=== PATIENT | female | born 1995 | race Caucasian/White ===

== ENCOUNTER 2019-01-03 09:54 | Emergency (ER) | payer OTHER ==
[~2019-01-03] VITALS: Ht 162.6 cm; Wt 81.7 kg
[~2019-01-03 09:54] MED LIST: ADALAT CC PO; ALBU8HFA2 INH; AMOX500 PO; AZIT250 PO; BC PILLS; IBUP800 PO; LABE200 PO; LISI5 PO; METO100; PHENA100 PO; PHENA200 PO; SULTRIDS PO; Verotin-Gr Cap1 EACH PO
[2019-01-03] MEDS ORDERED: HYDHCL25 (10:19)
[2019-01-03] MEDS ORDERED: BUPR100 PO (10:19)
[2019-01-03] MEDS ORDERED: LOSARTAN POTAS100 MG PO (10:19)
[2019-01-03 10:26] LABS: Source, Urine Clean Catch
[2019-01-03 10:29] LABS: Bilirubin, Urine Neg (Neg); Blood, Urine 5+ (Neg); Glucose Qualitative, Urine Neg (Neg); Ketones, Urine 1+ (Neg); Leukocyte Esterase, Urine 3+ (Neg); Nitrite, Urine Neg (Neg); Protein, Urine 3+ (Neg); Specific Gravity, Urine 1.015 (1.003-1.022); Urobilinogen, Urine NORM (Normal)
[2019-01-03 10:38] LABS: Appearance, Urine Bloody (Clear); Color, Urine Red (P-Yellow)
[2019-01-03 10:41] LABS: Bacteria Rare /hpf; Red Blood Cells, Urine TNTC /hpf (0-2); Squamous Epithelial Cells Rare /hpf (Few); White Blood Cells, Urine TNTC /hpf (0-5)
[2019-01-03] MEDS ORDERED: Macrobid 100 M100 MG PO (10:48)
[2019-01-03] MEDS ORDERED: Pyridium200 MG PO (10:48)
== END 2019-01-03 10:55 | disposition home or self-care (01) ==
LOC: ER 09:54
PROVIDERS: Physician Assistant
DX: N39.0 Urinary tract infection, site not specified (principal); Z88.5 Allergy status to narcotic agent; Z79.899 Other long term (current) drug therapy; I10 Essential (primary) hypertension; F41.9 Anxiety disorder, unspecified
CPT/HCPCS: 81001; 81025; 87077; 87086; 87186; 99283

== ENCOUNTER → 2022-12-24 | Outpatient (CLI) | payer OTHER ==
[~2022-12-24] MED LIST changes: +BUPR100 PO; +HYDHCL25; +LOSARTAN POTAS100 MG PO; +Macrobid 100 M100 MG PO; +Pyridium200 MG PO
== END ==
LOC: LAB SHORT 07:00 → LAB 07:00 → LAB FUT 09-19 15:55
DX: I10 Essential (primary) hypertension (principal)
CPT/HCPCS: 81050

== ENCOUNTER → 2023-04-25 | Outpatient (CLI) | payer OTHER ==
[2023-04-25 09:53] LABS: BASOPHILS ABSOLUTE AUTO 0.04 K/mm3 (0.00-0.23); BASOPHILS PERCENT AUTO 1 % (0-2); EOSINOPHILS ABSOLUTE AUTO 0.16 K/mm3 (0.00-0.68); EOSINOPHILS PERCENT AUTO 2 % (0-6); Hematocrit 40.1 % (33.0-51.0); Hemoglobin 13.6 g/dL (11.5-16.0); IMMATURE GRAN ABSOLUTE AUTO 0.05 K/mm3 (0.00-0.10); IMMATURE GRAN PERCENT AUTO 1 % (0-1); LYMPHOCYTES ABSOLUTE AUTO 3.36 K/mm3 (0.84-5.20); LYMPHOCYTES PERCENT AUTO 38 % (21-46); MONOCYTES ABSOLUTE AUTO 0.59 K/mm3 (0.16-1.47); MONOCYTES PERCENT AUTO 7 % (4-13); Mean Corpuscular HGB 28.6 pg (26.0-34.0); Mean Corpuscular HGB Conc 33.9 g/dL (31.5-36.5); Mean Corpuscular Volume 84 fL (80-100); Mean Platelet Volume 9.3 fL (9.1-12.4); NEUTROPHILS ABSOLUTE AUTO 4.68 K/mm3 (1.96-9.15); NEUTROPHILS PERCENT AUTO 53 % (41-73); Platelet Count 390 K/mm3 (150-400); RDW Coefficient Variation 13.2 % (11.7-14.2); RDW Standard Deviation 39.9 fL (35.1-46.3); Red Blood Cell Count 4.76 M/mm3 (3.80-5.20); White Blood Cell Count 8.88 K/mm3 (4.00-11.30)
[2023-04-25 10:16] LABS: Bun/Creatinine Ratio 6.3 (12.0-20.0); Calcium, Blood 9.1 mg/dL (8.5-10.1); Creatinine, Blood 1.11 mg/dL (0.40-1.00); Potassium, Blood 3.9 mmol/L (3.5-5.5); Thyroid Stimulating Hormone 1.102 uIU/mL (0.360-4.800)
== END ==
LOC: LAB 09:48 → LAB SHORT 09:48
PROVIDERS: Physician Assistant Surgical
DX: R07.89 Other chest pain (principal)
CPT/HCPCS: 80048; 84443; 85025